=== PATIENT | male | born 1990 | race Caucasian/White ===

== ENCOUNTER 2017-11-19 16:22 | Emergency (ER) | payer BC, OTHER ==
[~2017-11-19] VITALS: Ht 180.3 cm; Wt 83.1 kg
[~2017-11-19 16:22] MED LIST: MEDLIST
[2017-11-19 16:32] VITALS: Ht 180.3 cm; Wt 83.1 kg
[2017-11-19] MEDS ORDERED: MECLIZINE HCL 25 MG TAB PO STA (16:54)
[2017-11-19] MEDS ORDERED: SODIUM CHLORIDE 0.9% 1000ML 1,000 ML IV ONE (17:00)
--- NOTE | 2017-11-19 17:03 | EMERGENCY ROOM VISIT NOTE ---
History First contact with patient: 16:36 Chief Complaint: DIZZY Stated Complaint: DIZZY History of Present Illness The patient is a 27 year old male who presents to the Emergency Room with complaints of dizziness and vomiting that occurred prior to arrival. The patient has had intermittent dizziness over the last 6 months. He has been seen by his primary care physician. He was told he had high blood pressure and was started on hydrochlorothiazide and potassium approximately 3 months ago. He was also prescribed meclizine, which does seem to help with the symptoms. The patient says that his symptoms are typically brought on by exertion. He was doing physical activity outside prior to his episode today. He denies any headache. No heart palpitations or chest pain. No difficulty breathing. Review of Systems 10 system review performed and negative unless noted in HPI or below Past Medical/Surgical History Hypertension Social History Smoking Status: Never Smoker Occupation Status: employed Current/Historical Medications Scheduled Chlorthalidone (Hygroton), 25 MG PO QAM Potassium Chloride Microencaps (Potassium Chloride Er), 20 MEQ PO DAILY Scheduled PRN Meclizine Hcl (Meclizine Hcl), 25 MG PO TID PRN for Dizziness or Vertigo Physical Exam Vital Signs Date Time Temp Pulse Resp B/P (MAP) Pulse Ox O2 Delivery O2 Flow Rate FiO2 11/19/17 19:28 36.3 96 16 157/91 98 11/19/17 18:34 96 16 157/91 98 Room Air 11/19/17 17:15 100 11/19/17 16:54 112 155/94 98 Room Air 108 151/104 98 152/92 11/19/17 16:32 36.3 107 20 172/63 98 Room Air Physical Exam GENERAL: 27-year-old male, in no acute distress, nondiaphoretic, well-developed well-nourished. SKIN: The skin was without rashes, erythema, edema, or bruising. HEAD: Normocephalic atraumatic. EARS: External auditory canals clear, tympanic membranes pearly swain without erythema or effusion bilaterally. EYES: Pupils equal round and reactive to light and accommodation. Conjunctivae without injection, sclerae without icterus. Extraocular movements intact. MOUTH: Mucous membranes somewhat dry. NECK: Supple without nuchal rigidity. No carotid bruit bilaterally. Cervical spine is nontender. No JVD. HEART: Tachycardic, regular rhythm without murmurs gallops or rubs. LUNGS: Clear to auscultation bilaterally without wheezes, rales or rhonchi. No accessory muscle use. ABDOMEN: Positive bowel sounds x 4.Soft, nontender, without organomegaly. No guarding or rebound tenderness. MUSCULOSKELETAL: No muscle atrophy, erythema, or edema noted. Strength 5/5 throughout. NEURO: Patient was alert and oriented to person place and time. Cranial nerves grossly intact. Cerebellar function intact. Negative Romberg. Positive nystagmus with [place]-Hallpike maneuver Medical Decision & Procedures ER Provider Diagnostic Interpretation: CT head without contrast IMPRESSION: No acute intracranial abnormality. Electronically signed by: Jose Daniel Ramirez M.D. 11/19/2017 7:01 PM Dictated Date/Time: 11/19/2017 6:59 PM The status of this report is Signed. Draft = Not yet reviewed or approved by Radiologist. Signed = Reviewed and approved by Radiologist. <AttendingPhy></AttendingPhy> <FamilyPhy>Kelli Valerio M.D.</FamilyPhy> < PrimaryPhy>Kelli Valerio M.D.</PrimaryPhy> <UnitNumber>[id number]</ UnitNumber> <VisitNumber>[id number]</VisitNumber> <PatientName CXR IMPRESSION: No acute cardiopulmonary abnormality. Electronically signed by: Jose Daniel Ramirez M.D. 11/19/2017 5:30 PM Dictated Date/Time: 11/19/2017 5:30 PM The status of this report is Signed. Draft = Not yet reviewed or approved by Radiologist. Signed = Reviewed and approved by Radiologist. <AttendingPhy></AttendingPhy> <FamilyPhy>Kelli Valerio M.D.</FamilyPhy> < PrimaryPhy>Kelli Valerio M.D.</PrimaryPhy> <UnitNumber>[id number]</ UnitNumber> <VisitNumber>[id number]</VisitNumber Laboratory Results 11/19/17 17:00 Red Blood Count 4.96, Mean Corpuscular Volume 89.9, Mean Corpuscular Hemoglobin 30.4, Mean Corpuscular Hemoglobin Concent 33.9, Mean Platelet Volume 10.8, Neutrophils (%) (Auto) 82.7, Lymphocytes (%) (Auto) 8.4, Monocytes (%) (Auto) 8.2, Eosinophils (%) (Auto) 0.4, Basophils (%) (Auto) 0.1, Neutrophils # (Auto) 8.34, Lymphocytes # (Auto) 0.85, Monocytes # (Auto) 0.83, Eosinophils # (Auto) 0.04, Basophils # (Auto) 0.01 11/19/17 17:00 Test 11/19/17 17:00 White Blood Count 10.09 K/uL (4.8-10.8) Red Blood Count 4.96 M/uL (4.7-6.1) Hemoglobin 15.1 g/dL (14.0-18.0) Hematocrit 44.6 % (42-52) Mean Corpuscular Volume 89.9 fL (80-100) Mean Corpuscular Hemoglobin 30.4 pg (25-34) Mean Corpuscular Hemoglobin Concent 33.9 g/dl (32-36) Platelet Count 220 K/uL (130-400) Mean Platelet Volume 10.8 fL (7.4-10.4) Neutrophils (%) (Auto) 82.7 % Lymphocytes (%) (Auto) 8.4 % Monocytes (%) (Auto) 8.2 % Eosinophils (%) (Auto) 0.4 % Basophils (%) (Auto) 0.1 % Neutrophils # (Auto) 8.34 K/uL (1.4-6.5) Lymphocytes # (Auto) 0.85 K/uL (1.2-3.4) Monocytes # (Auto) 0.83 K/uL (0.11-0.59) Eosinophils # (Auto) 0.04 K/uL (0-0.5) Basophils # (Auto) 0.01 K/uL (0-0.2) RDW Standard Deviation 39.7 fL (36.4-46.3) RDW Coefficient of Variation 12.2 % (11.5-14.5) Immature Granulocyte % (Auto) 0.2 % Immature Granulocyte # (Auto) 0.02 K/uL (0.00-0.02) Anion Gap 7.0 mmol/L (3-11) Est Creatinine Clear Calc Drug Dose 104.5 ml/min Estimated GFR () 103.1 Estimated GFR (Non- 88.9 BUN/Creatinine Ratio 9.7 (10-20) Calcium Level 8.2 mg/dl (8.5-10.1) Thyroid Stimulating Hormone (TSH) 1.170 uIu/ml (0.300-4.500) Lyme Disease IgG Antibody NEG (NEG) Lyme Disease IgM Antibody NEG (NEG) Medications Administered Medications (Trade) Dose Ordered Sig/Clive Route Start Time Stop Time Status Last Admin Dose Admin Sodium Chloride 1,000 ml @ 999 mls/hr Q1H1M ONCE IV 11/19/17 17:00 11/19/17 18:00 DC 11/19/17 17:11 999 MLS/HR Meclizine HCl (Antivert Tab) 25 mg NOW STAT PO 11/19/17 16:54 11/19/17 16:57 DC 11/19/17 17:12 25 MG ECG Indication: other Rate (beats per minute): 101 Rhythm: sinus tachycardia Comparison ECG Date: no prior available ED Course Patient was seen and examined Vital signs including blood pressure were reviewed medications list was verified with patient Labs were obtained, and a saline lock was established The patient was hydrated with 1 L of normal saline. He was given a dose of meclizine. Imaging was performed and reviewed Upon reevaluation, the patient's symptoms were much improved. We discussed the results of his workup. He voiced understanding. He was comfortable being discharged home. I reviewed discharge instructions the patient. They voiced understanding and had no further questions. Medical Decision Differential diagnosis: Orthostatic hypotension, dehydration, benign positional vertigo, Mnire's disease, intracranial abnormality, arrhythmia This patient is a 27-year-old male presents to emergency department with dizziness and vomiting. His symptoms have been intermittent over approximately 6 months. On exam, the patient had a positive [place]-Hallpike maneuver. My thinking was this was likely benign positional vertigo. Otherwise, the patient was neurologically intact. He did appear dehydrated, which is likely the cause of his tachycardia. This improved with fluids. I do not suspect pulmonary embolus as the patient did not have any chest pain or shortness of breath. He was not hypoxic. The patient had good symptomatic relief with fluids and meclizine in the emergency department. I believe he is stable to be discharged home with close follow-up. He is comfortable with this plan. He has a prescription for meclizine at home. He was cautioned to return to the emergency department with any new, worsening or concerning symptoms. This chart was completed in part utilizing [employer] Speech Voice Recognition software. Attempts were made to minimize the grammatical errors, random word insertions, pronoun errors and incomplete sentences. Any formal questions or concerns about the content, text or information contained within the body of this dictation should be directly addressed to the provider for clarification. Impression Primary Impression: Vertigo Departure Information Dispostion Home / Self-Care Condition GOOD Referrals No Doctor, Assigned (PCP) Patient Instructions ED [facility], [facility] Additional Instructions You have been evaluated in the emergency department for dizziness and vomiting. This is likely due to vertigo. Please continue your medications as prescribed. It is important to stay well hydrated. Please increase oral fluids over the next 48 hours. Please follow-up with your primary care physician in the next 2-3 days for recheck. Your blood pressure was elevated. This needs to be followed up. Do not hesitate to return to the emergency department with any new, worsening or concerning symptoms; especially, severe dizziness or headache, fever, or changes in vision
[2017-11-19] MEDS ORDERED: MECL1TAB42 PO (17:09)
[2017-11-19] MEDS ORDERED: HYG/25 PO (17:09)
[2017-11-19] MEDS ORDERED: POTA20TA13 PO (17:09)
[2017-11-19 17:27] LABS: BASO % 0.1 %; BASO ABS # 0.01 K/uL (0-0.2); EOS % 0.4 %; EOS ABS # 0.04 K/uL (0-0.5); HEMATOCRIT 44.6 % (42-52); HEMOGLOBIN 15.1 g/dL (14.0-18.0); IG# 0.02 K/uL (0.00-0.02); LYMPH % 8.4 %; LYMPH ABS # 0.85 K/uL (1.2-3.4); MEAN CELL VOLUME 89.9 fL (80-100); MEAN CORPUSCULAR HEMOGLOBIN 30.4 pg (25-34); MEAN CORPUSCULAR HGB CONC 33.9 g/dl (32-36); MEAN PLATELET VOLUME 10.8 fL (7.4-10.4); MONO % 8.2 %; MONO ABS # 0.83 K/uL (0.11-0.59); NEUT % 82.7 %; NEUT ABS # 8.34 K/uL (1.4-6.5); PLATELET COUNT 220 K/uL (130-400); RED CELL DISTRIBUTION WIDTH CV 12.2 % (11.5-14.5); RED CELL DISTRIBUTION WIDTH SD 39.7 fL (36.4-46.3); WHITE BLOOD COUNT 10.09 K/uL (4.8-10.8)
--- NOTE | 2017-11-19 17:32 | DIAGNOSTIC IMAGING REPORT ---
SINGLE VIEW CHEST CLINICAL HISTORY: Dizziness. Tachycardia. FINDINGS: An AP, portable, upright chest radiograph is obtained. No prior studies are available for comparison at the time of dictation. The cardiomediastinal silhouette is unremarkable. The lungs and pleural spaces are clear. No pneumothorax is seen. The bony thorax is grossly intact. IMPRESSION: No acute cardiopulmonary abnormality. Electronically signed by: Jose Daniel Ramirez M.D. 11/19/2017 5:30 PM Dictated Date/Time: 11/19/2017 5:30 PM
[2017-11-19 17:45] LABS: CALCIUM 8.2 mg/dl (8.5-10.1); CREATININE 1.12 mg/dl (0.60-1.40); POTASSIUM 3.7 mmol/L (3.5-5.1)
--- NOTE | 2017-11-19 19:03 | DIAGNOSTIC IMAGING REPORT ---
CT SCAN OF THE BRAIN WITHOUT IV CONTRAST CLINICAL HISTORY: Dizziness. COMPARISON STUDY: No priors. TECHNIQUE: Unenhanced axial CT scan of the brain is performed from the vertex to the skull base. A dose lowering technique was utilized adhering to the principles of ALARA. CT DOSE: 537.48 mGy.cm FINDINGS: Brain parenchyma: The brain parenchyma is normal in appearance. There is no hemorrhage, mass effect, or evidence of acute territorial ischemia by CT criteria. Block-white matter is preserved. No extra-axial fluid collection is seen. Ventricles, sulci, cisterns: Normal in configuration. Intracranial vasculature: The visualized intracranial vasculature at the skull base is normal in appearance. Calvarium: Unremarkable. Sinuses and mastoids: The visualized paranasal sinuses are clear. The mastoid air cells are well pneumatized. Orbits: The bony orbits are grossly intact. IMPRESSION: No acute intracranial abnormality. Electronically signed by: Jose Daniel Ramirez M.D. 11/19/2017 7:01 PM Dictated Date/Time: 11/19/2017 6:59 PM
[2017-11-19 19:28] VITALS: BP 157/91; PULSE 96; TEMP 36.3; O2SAT 98
== END 2017-11-19 19:29 | disposition home or self-care (01) ==
LOC: C.EDB 16:25 → C.EDA 19:29
DX: R42 Dizziness and giddiness (principal); R00.0 Tachycardia, unspecified; I10 Essential (primary) hypertension